=== PATIENT | female | born 1965 | race Caucasian/White ===

== ENCOUNTER 2016-05-07 10:13 | Inpatient (IN) ==
--- NOTE | 2016-05-07 10:55 | Emergency Department Note ---
Disposition Clinical Impression: Pneumonia, Pleural effusion, Sepsis, COPD (chronic obstructive pulmonary disease), Non-cardiac chest pain, Obesity Disposition: Admitted As Inpatient Referrals: NO,PCP [Non-Partnered Physician] - Forms: ED Satisfaction Letter General Adult HPI - General Chief complaint: ED Chest Pain Stated complaint: pain in chest with deep breath Time Seen by Provider: 05/07/16 10:38 Source: patient Limitations: no limitations - History of Present Illness HPI Narrative: 50-year-old female reports emergency department complaining of left chest pain. Pain is sharp and associated with breathing. She has had a cough. She has a history of chronic back pain which is unchanged. There is no history of fall or injury or rash. No abdominal pain vomiting or diarrhea. There is been no acute neck pain no coldness blueness numbness or weakness left upper extremity. The patient reports she feels like the pain is in her lungs. There is no history of direct shoulder pain. It is not painful to move the shoulder. The patient has no previous history of neck surgery. She is on chronic pain management and has had steroid injections for her back pain. There is no history of leg swelling or pain or coughing up blood. She has no history of previous PE or DVT. She denies any cardiac problems in the past. There is no history of confusion, trouble walking talking hearing seeing or speaking. No falls or injuries. She denies anticoagulant therapy at this time. She does describe some upper respiratory symptoms which are been present for about 2 weeks. Recent ED visit for same, discharged with outpatient management. Onset (ago): day(s) Pain Scale: 7 - Related Data Previous Rx's Medication Instructions Recorded OxyCODONE/APAP 5/325 [Percocet 1 each PO Q4HR PRN #10 tablet 04/10/15 5/325 MG] Cephalexin [Keflex] 500 mg PO QID #40 capsule 10/20/15 DiphenhydraMINE [Benadryl] 25 mg PO Q6HR #20 capsule 10/20/15 Hydrocodone/Acetaminophen [[place] 1 tab PO TID PRN #6 tab 10/20/15 5-325 Tablet] Albuterol Sulfate [Albuterol 1 puff IH Q4HR #1 hfa.aer.ad 05/05/16 Inhaler] Azithromycin 250 mg PO DAILY #6 tablet 05/05/16 Cyclobenzaprine [Flexeril] 10 mg PO BID PRN #10 tablet 05/05/16 PredniSONE 40 mg PO DAILY #10 tablet 05/05/16 Allergies Allergy/AdvReac Type Severity Reaction Status Date / Time adhesive Allergy Hives Verified 05/07/16 13:44 bacitracin Allergy Hives Verified 05/07/16 13:44 [From Neosporin ([id number])] grass pollen-perennial rye, Allergy Hives Verified 05/07/16 13:44 standar [grass poll-perennial rye,std] Neomycin Allergy Hives Verified 05/07/16 13:44 [From Neosporin ([id number])] polymyxin B Allergy Hives Verified 05/07/16 13:44 [From Neosporin ([id number])] gabapentin [From Neurontin] AdvReac Hallucinati Verified 05/07/16 13:44 ng simvastatin [From Zocor] AdvReac Muscle Pain Verified 05/07/16 13:44 All systems ED: reviewed and negative except as stated. Past Medical History - Past Medical History Medical history: Reports: arthritis, COPD, fibromyalgia, hypertension Psychiatric history: Reports: anxiety, depression FILE KEEPER history: Reports: no FILE KEEPER history - Social History Smoking Status: Current every day smoker Smokeless Tobacco Status: No Alcohol use: Reports: none Drug use: Reports: none Physical Exam - General Limitations: no limitations General appearance: alert, anxious - Head Head exam: atraumatic, normocephalic, normal inspection - Eye Eye exam: Present: normal appearance, PERRL, EOMI - ENT ENT exam: normal exam, normal oropharynx, mucous membranes moist - Neck Neck exam: Present: normal inspection, full ROM, trachea midline - Chest Chest inspection: Present: normal inspection, symmetric chest wall rise. Absent : tenderness, rash - Respiratory Respiratory exam: Present: normal lung sounds bilaterally. Absent: respiratory distress - Cardiovascular Cardiovascular exam: Present: regular rate, normal rhythm, normal heart sounds - Abdominal Exam Abdominal exam: Present: soft, Non-Tender. Absent: tenderness, distention, guarding, rebound, rigidity, pulsatile mass - Extremities Exam Extremities exam: Present: normal inspection, full ROM, normal capillary refill. Absent: tenderness, pedal edema, joint swelling, calf tenderness - Expanded Lower Extremity Exam Lower leg exam: Absent: Homans' sign Neurovascular/Tendon exam: Absent: motor deficit, sensory deficit, tendon deficit - Back Exam Back exam: Present: normal inspection, full ROM. Absent: tenderness, CVA tenderness (R), CVA tenderness (L), vertebral tenderness - Neurological Exam Neurological exam: Present: alert, oriented X3, CN II-XII intact. Absent: motor sensory deficit - Psychiatric Psychiatric exam: Present: normal affect, normal mood - Skin Skin exam: Present: warm, dry, intact, normal color. Absent: rash, cyanosis, diaphoresis, erythema, pallor, mottled Course Vital Signs Temperature 97.5 F L 05/07/16 10:14 Pulse Rate 102 05/07/16 10:14 Respiratory Rate 20 05/07/16 10:14 Blood Pressure 132/80 05/07/16 10:14 O2 Sat by Pulse Oximetry 99 05/07/16 10:14 Temperature 97.5 F L 05/07/16 10:14 Pulse Rate 92 05/07/16 13:33 Respiratory Rate 20 05/07/16 13:33 Blood Pressure 133/93 05/07/16 13:33 O2 Sat by Pulse Oximetry 96 05/07/16 13:33 Oxygen Delivery Oxygen Delivery Room Air Medical Decision Making - [facility] Narrative Medical decision making narrative: The patient presents for the second time to the ED, she has been taking azithromycin and has worsening symptomatology. The patient is tachycardic, tachypneic, and has no elevated white count with a source of infection, it appears she meets sepsis criteria. Based on her failed outpatient therapy and secondary presentation meeting sepsis criteria, IV fluids were ordered as well as Levaquin. An initial lactate is still pending. The patient was given 2 L of fluid here in the ED. The patient was given a DuoNeb and steroid medication in the ED. She was also given pain medications. The patient's EKG and cardiac enzymes are unrevealing. The patient does not feel well enough to go home. Based on our findings, bilateral pneumonitis, pleural effusion, sepsis criteria , second presentation, para failed outpatient therapy, I consulted the hospitalist on-call. - Lab Data Lab results reviewed: Yes I reviewed the patient's lab results. Result diagrams: 05/07/16 11:35 05/07/16 11:35 Lab Results 02/01/17 02/01/17 02/01/17 Range/Units 11:35 11:35 11:35 WBC 21.8 H (4.3-11.1) K/mcL RBC 4.56 (3.82-4.97) M/mcL Hgb 13.3 (11.5-15.4) g/dL Hct 40.4 (35.3-44.9) % MCV 88.6 (83.0-100.0) fL MCH 29.2 (28.0-33.3) pg MCHC 32.9 (31.6-35.5) g/dL RDW 15.3 H (11.5-14.5) % Plt Count 311 (140-400) K/mcL MPV 9.0 L (9.4-12.4) fL Immature Gran % 2.7 (0-4) % Seg Neutrophils % 81.6 % Lymphocytes % 7.4 % Monocytes % 7.7 % Eosinophils % 0.2 % Basophils % 0.4 % Neutrophils # 17.8 H (1.6-8.9) K/mcL Lymphocytes # 1.6 (0.6-4.6) K/mcL Monocytes # 1.7 H (0.0-1.3) K/mcL Eosinophils # 0.1 (0.0-0.6) K/mcL Basophils # 0.1 (0.0-0.2) K/mcL PT 13.7 H (9.4-12.1) Seconds INR 1.3 APTT 25.7 L (26.0-36.0) Seconds Sodium (136-145) mEq/L Potassium (3.5-4.5) mEq/L Chloride (98-109) mEq/L Carbon Dioxide (19-29) mEq/L BUN (7-20) mg/dL Creatinine (0.57-1.11) mg/dL Est GFR ( Amer) (> 60) Est GFR (Non-Af Amer) (> 60) BUN/Creatinine Ratio (6-26) Glucose (70-99) mg/dL Calculated Osmolality (280-300) Calcium (8.6-10.8) mg/dL Total Bilirubin (0.2-1.2) mg/dL Direct Bilirubin (0.0-0.5) mg/dL Indirect Bilirubin (0.0-1.2) mg/dL AST (5-34) Units/L ALT (0-55) Units/L Alkaline Phosphatase (38-126) Units/L Troponin I (0-0.03) ng/mL C-Reactive Protein (Less than 5) mg/L B-Natriuretic Peptide 20 (0-100) pg/mL Serum Total Protein (6.0-8.3) g/dL Albumin (3.5-5.0) g/dL Globulin (2.4-3.5) g/dL Albumin/Globulin Ratio (1.1-2.2) 05/07/16 05/07/16 Range/Units 11:35 11:35 WBC (4.3-11.1) K/mcL RBC (3.82-4.97) M/mcL Hgb (11.5-15.4) g/dL Hct (35.3-44.9) % MCV (83.0-100.0) fL MCH (28.0-33.3) pg MCHC (31.6-35.5) g/dL RDW (11.5-14.5) % Plt Count (140-400) K/mcL MPV (9.4-12.4) fL Immature Gran % (0-4) % Seg Neutrophils % % Lymphocytes % % Monocytes % % Eosinophils % % Basophils % % Neutrophils # (1.6-8.9) K/mcL Lymphocytes # (0.6-4.6) K/mcL Monocytes # (0.0-1.3) K/mcL Eosinophils # (0.0-0.6) K/mcL Basophils # (0.0-0.2) K/mcL PT (9.4-12.1) Seconds INR APTT (26.0-36.0) Seconds Sodium 132 L (136-145) mEq/L Potassium 4.4 (3.5-4.5) mEq/L Chloride 98 (98-109) mEq/L Carbon Dioxide 24 (19-29) mEq/L BUN 15 (7-20) mg/dL Creatinine 0.67 (0.57-1.11) mg/dL Est GFR ( Amer) > 60 (> 60) Est GFR (Non-Af Amer) > 60 (> 60) BUN/Creatinine Ratio 22 (6-26) Glucose 95 (70-99) mg/dL Calculated Osmolality 275 L (280-300) Calcium 9.5 (8.6-10.8) mg/dL Total Bilirubin 0.3 (0.2-1.2) mg/dL Direct Bilirubin 0.1 (0.0-0.5) mg/dL Indirect Bilirubin 0.2 (0.0-1.2) mg/dL AST 14 (5-34) Units/L ALT 19 (0-55) Units/L Alkaline Phosphatase 76 (38-126) Units/L Troponin I 0.00 (0-0.03) ng/mL C-Reactive Protein 115 H (Less than 5) mg/L B-Natriuretic Peptide (0-100) pg/mL Serum Total Protein 6.6 (6.0-8.3) g/dL Albumin 2.6 L (3.5-5.0) g/dL Globulin 4.0 H (2.4-3.5) g/dL Albumin/Globulin Ratio 0.7 L (1.1-2.2) - Radiology Data Radiology results reviewed: Yes I reviewed the patient's radiology results.
[2016-05-07 11:47] LABS: Basophils # 0.1 K/mcL (0.0-0.2); Basophils % 0.4 %; Eosinophils # 0.1 K/mcL (0.0-0.6); Eosinophils % 0.2 %; Hematocrit 40.4 % (35.3-44.9); Hemoglobin 13.3 g/dL (11.5-15.4); Immature Granulocytes % 2.7 % (0-4); Lymphocytes # 1.6 K/mcL (0.6-4.6); Lymphocytes % 7.4 %; Mean Corpuscular HGB Conc 32.9 g/dL (31.6-35.5); Mean Corpuscular Hemoglobin 29.2 pg (28.0-33.3); Mean Corpuscular Volume 88.6 fL (83.0-100.0); Monocytes # 1.7 K/mcL (0.0-1.3); Monocytes % 7.7 %; Neutrophils # 17.8 K/mcL (1.6-8.9); Platelet Count 311 K/mcL (140-400); Red Blood Count 4.56 M/mcL (3.82-4.97); Red Cell Distribution Width 15.3 % (11.5-14.5); Segmented Neutrophils % 81.6 %
[2016-05-07 11:53] LABS: INR 1.3; Prothrombin Time 13.7 Seconds (9.4-12.1)
[2016-05-07 11:56] LABS: Activated Partial Thrombo Time 25.7 Seconds (26.0-36.0)
[2016-05-07 12:02] LABS: Alanine Aminotransferase 19 Units/L (0-55); Albumin 2.6 g/dL (3.5-5.0); Albumin/Globulin Ratio 0.7 (1.1-2.2); Alkaline Phosphatase 76 Units/L (38-126); Aspartate Amino Transferase 14 Units/L (5-34); BUN/Creatinine Ratio 22 (6-26); Bilirubin,Direct 0.1 mg/dL (0.0-0.5); Bilirubin,Indirect 0.2 mg/dL (0.0-1.2); Bilirubin,Total 0.3 mg/dL (0.2-1.2); Blood Urea Nitrogen 15 mg/dL (7-20); Calcium 9.5 mg/dL (8.6-10.8); Carbon Dioxide 24 mEq/L (19-29); Chloride 98 mEq/L (98-109); Glucose 95 mg/dL (70-99); Osmolality,Calculated 275 (280-300); Potassium 4.4 mEq/L (3.5-4.5); Sodium 132 mEq/L (136-145); Total Protein 6.6 g/dL (6.0-8.3); eGFR For African Americans > 60 (> 60); eGFR For Non-African Americans > 60 (> 60)
[2016-05-07 12:15] LABS: C-Reactive Protein 115 mg/L (Less than 5)
[2016-05-07] MEDS ORDERED: *HR* HYDROmorphone (PF) 1 MG/ML SYRINGE IVP ONE (13:07)
[2016-05-07] MEDS ORDERED: 0.9 % Sodium Chloride 1,000 ML IVC ONE ×2 (13:07→13:30)
[2016-05-07] MEDS ORDERED: Levofloxacin 750 MG/150 ML 750 MG/150 ML BAG IVPB ONE (13:07)
[2016-05-07] MEDS ORDERED: methylPREDNISolone 125 MG/2 ML VIAL IVP ONE (13:10)
[2016-05-07] MEDS ORDERED: Ipratropium/Albuterol Neb 3 ML IH ONE (13:10)
[2016-05-07] MEDS ORDERED: *HR* HYDROcodone/Acet 5/325 mg TABLET PO PRN (14:47)
[2016-05-07] MEDS ORDERED: Acetaminophen 325 MG TABLET PO PRN (14:51)
[2016-05-07] MEDS ORDERED: Naloxone 0.4 MG/ML INJ IVP PRN (14:51)
[2016-05-07] MEDS ORDERED: Ondansetron 4 MG/2 ML VIAL IVP PRN (14:51)
[2016-05-07] MEDS ORDERED: Ipratropium/Albuterol Neb 3 ML IH PRN (15:08)
--- NOTE | 2016-05-07 15:13 | Internal Med History&Physical ---
Date of Encounter: 05/07/16 Time of Encounter: 14:50 Assessment and Plan (1) Acute exacerbation of chronic obstructive pulmonary disease (COPD) Current visit: Yes Status: Acute Acute exacerbation of COPD likely secondary to underlying PNA Continue IV steroids and bronchodilators Monitor O2 sat (goal O2 sat: 89-92%) Continue O2 supplementation as needed (2) Community acquired pneumonia Current visit: Yes Status: Acute -Failed outpatient therapy -Started IV Levaquin, will continue -f/u blood cultures -alter abx therapy as per blood cultures and clinical response (3) Cough Current visit: Yes Status: Acute -Guaifenesin PRN cough (4) Morbid obesity Current visit: Yes Status: Chronic Qualifiers: Obesity type: unspecified obesity type Qualified Code(s): E66.01 - Morbid ( severe) obesity due to excess calories (5) Hypertension Current visit: Yes Status: Chronic BP within acceptable range continue home medications Qualifiers: Hypertension type: essential hypertension Qualified Code(s): I10 - Essential (primary) hypertension (6) DVT prophylaxis Current visit: Yes Status: Acute Heparin SQ (7) Constipation Current visit: Yes Status: Chronic continue home medications Qualifiers: Constipation type: unspecified constipation type Qualified Code(s): K59.00 - Constipation, unspecified (8) Back pain Current visit: Yes Status: Chronic continue home pain medications Qualifiers: Back pain location: low back pain Chronicity: chronic Back pain laterality: unspecified Sciatica presence: unspecified whether sciatica present Qualified Code(s): M54.5 - Low back pain; G89.29 - Other chronic pain (9) Tobacco abuse Current visit: Yes Status: Chronic Smoking cessation counseling provided patient not ready to quit at this time, however states she is trying to cut down. Refused nicotine replacement therapy at this time (10) Non-cardiac chest pain Current visit: Yes Status: Acute Secondary to underlying pneumonia Will treat the PNA and COPD as listed above Tylenol PRN pain Guaifenesin prn cough Internal Medicine - H&P: HPI Chief complaint: shortness of breath/chest pain Admitted From: Home Plans for Post Hospital Care: Home History of present illness: Ms. Langford is a 50 year old female with PMH of COPD, HTN, HLD, IBS, fibromyalgia , chronic back pain (lumbar radiculopathy), chronic constipation, arthritis, and morbid obesity who presents to the ER for evaluation of worsening cough, shortness of breath, and chest pain. Patient states she was seen in the ER two days ago for the same complains and was discharged with oral antibiotics and steroids. She states she has been compliant with her medications but her symptoms worsened which prompted her visit to the ER. At this time she is resting comfortably in bed. states she feels much better with the nebulizer treatments. She reports of diffuse chest pain which occurs with cough and deep inspiration. She reports of being an every day smoker and states she had 11 cigarettes last night. At this time she denies any headache, dizziness, chest pain, abd pain, n/v, fever, or chills. Social Hx: 1ppd x 30+years Past Med Surg Social Fam HX - Past Medical History Medical history: arthritis, COPD, fibromyalgia, hypertension Psychiatric history: anxiety, depression - Social History Smoking Status: Current every day smoker Smokeless Tobacco Status: No Alcohol use: none Drug use: none Internal Medicine - H&P: Meds Albuterol Sulfate [Albuterol Inhaler] 1 puff IH Q4HR #1 hfa.aer.ad 05/05/16 [Rx] Cyclobenzaprine [Flexeril] 10 mg PO BID PRN #10 tablet 05/05/16 [Rx] Amitriptyline [Elavil] 50 mg PO HS 05/07/16 [History] Duloxetine [Cymbalta] 60 mg PO DAILY 05/07/16 [History] Fluticasone/Salmeterol [Advair 250-50 Diskus] 2 puff IH BID 05/07/16 [History] Hydrocodone/Acetaminophen [[place] 5-325 Tablet] 1 tab PO BID PRN 05/07/16 [ History] Lisinopril/Hydrochlorothiazide [Zestoretic 10-12.5 mg Tablet] 1 tab PO DAILY 04/22 [History] Loratadine [Allergy Relief] 10 mg PO DAILY 05/07/16 [History] Meloxicam [Meloxicam] 15 mg PO DAILY 05/07/16 [History] Omeprazole [PriLOSEC] 20 mg PO DAILY 05/07/16 [History] Polyethylene Glycol 3350 [MiraLAX] 17 gm PO DAILY 05/07/16 [History] Pravastatin Sodium [Pravachol] 40 mg PO DAILY 05/07/16 [History] Propranolol LA (24 HR) [Inderal LA] 60 mg PO DAILY 05/07/16 [History] Allergies adhesive Allergy (Verified 05/07/16 13:44) Hives bacitracin [From Neosporin ([id number])] Allergy (Verified 05/07/16 13:44) Hives grass pollen-perennial rye, standar [grass poll-perennial rye,std] Allergy ( Verified 05/07/16 13:44) Hives Neomycin [From Neosporin ([id number]-kle-lsmpm)] Allergy (Verified 05/07/16 13:44) Hives polymyxin B [From Neosporin (nbs-lmf-forzy)] Allergy (Verified 05/07/16 13:44) Hives gabapentin [From Neurontin] Adverse Reaction (Verified 05/07/16 13:44) Hallucinating simvastatin [From Zocor] Adverse Reaction (Verified 05/07/16 13:44) Muscle Pain All Systems PM: A 10-system review of systems was performed and is negative for pertinent findings except as documented above in the HPI. - Constitutional Constitutional: as per HPI - Constitutional Vitals: Temp Pulse Resp BP Pulse Ox 97.5 F L 92 16 154/102 96 05/07/16 10:14 05/07/16 13:33 05/07/16 14:27 05/07/16 14:27 05/07/16 13:33 General appearance: Present: cooperative, A&O X 3, morbidly obese, pleasant, no acute distress, answers questions appropriately - Head Head exam: Present: atraumatic, normocephalic - Eye Eye exam: Present: normal appearance, conjuntiva pink, sclera anicteric - Respiratory Respiratory exam: Absent: respiratory distress, wheezes (coarse breath sounds on right upper lobe, equal air entry bilaterally) - Cardiovascular Cardiovascular exam: Present: RRR, +S1, +S2 - GI/Abdominal GI/Abdominal exam: Present: distended (obese), normal bowel sounds, soft. Absent: tenderness - Extremities Exam Extremities exam: Present: pedal edema, warm, radial pulses palpable and symetrical. Absent: calf tenderness, tenderness - Neurological Exam Neurological exam: Present: alert, oriented X3, no focal deficits - Psychiatric Psychiatric exam: Present: normal affect, normal mood Internal Med - H&P Results - Labs CBC & Chem 7: 05/07/16 11:35 05/07/16 11:35
[2016-05-07] MEDS ORDERED: Ipratropium/Albuterol Neb 3 ML IH SCH (16:00)
[2016-05-07] MEDS: *HR* Heparin 5,000 UNIT/ML VIAL SQ SCH ×2 (16:24→22:03)
[2016-05-07] MEDS: MethylPREDNISolone 40 MG/ML VIAL IVP SCH (16:24)
[2016-05-07] MEDS: *HR* HYDROcodone/Acet 5/325 mg TABLET PO PRN (16:32)
[2016-05-07] MEDS: Ipratropium/Albuterol Neb 3 ML IH SCH ×2 (16:41→21:29)
[2016-05-07] MEDS: GuaiFENesin Liq 200 MG/10 ML UDC PO PRN (17:46)
[2016-05-07 17:57] LABS: Bilirubin,Urine Negative (Negative); Blood,Urine Trace (Negative); Clarity,Urine Clear (Clear); Color,Urine Yellow (Yellow); Glucose,Urine (UA) Normal (Normal); Ketones,Urine Negative (Negative); Leukocyte Esterase,Urine Negative (Negative); Nitrite,Urine Negative (Negative); PH,Urine 7.5 pH Units (5.0-8.0); Protein,Urine Negative (Neg-Trace); Specific Gravity,Urine 1.007 (1.010-1.025); Urobilinogen,Urine Normal (Normal)
[2016-05-07 17:59] LABS: Bacteria,Urine None Seen per hpf (None-Few); Hyaline Casts,Urine None Seen per lpf (None-Few); RBC,Urine 0-3 per hpf (0-3); Squamous Epithelial Cell,Urine Many per lpf (None-Few); WBC,Urine 0-3 per hpf (0-3)
[2016-05-07] MEDS ORDERED: Budesonide/Formoterol 80/4.5 MDI IH SCH (21:00)
[2016-05-07] MEDS: Acetaminophen 325 MG TABLET PO PRN (22:02)
[2016-05-07] MEDS: Nicotine 14 MG PATCH.TD24 TD SCH (22:03)
[2016-05-08] MEDS: Ipratropium/Albuterol Neb 3 ML IH SCH ×5 (05:06→22:03)
[2016-05-08] MEDS: GuaiFENesin Liq 200 MG/10 ML UDC PO PRN (05:20)
[2016-05-08] MEDS: MethylPREDNISolone 40 MG/ML VIAL IVP SCH ×2 (05:20→17:51)
[2016-05-08] MEDS: *HR* HYDROcodone/Acet 5/325 mg TABLET PO PRN ×2 (05:20→14:57)
[2016-05-08 06:30] LABS: Basophils # 0.1 K/mcL (0.0-0.2); Basophils % 0.3 %; Hematocrit 36.6 % (35.3-44.9); Hemoglobin 11.9 g/dL (11.5-15.4); Immature Granulocytes % 3.7 % (0-4); Lymphocytes # 1.5 K/mcL (0.6-4.6); Lymphocytes % 8.3 %; Mean Corpuscular HGB Conc 32.5 g/dL (31.6-35.5); Mean Corpuscular Hemoglobin 28.7 pg (28.0-33.3); Mean Corpuscular Volume 88.2 fL (83.0-100.0); Mean Platelet Volume 9.2 fL (9.4-12.4); Monocytes # 0.5 K/mcL (0.0-1.3); Monocytes % 2.6 %; Neutrophils # 15.1 K/mcL (1.6-8.9); Platelet Count 313 K/mcL (140-400); Red Blood Count 4.15 M/mcL (3.82-4.97); Segmented Neutrophils % 85.1 %
[2016-05-08 06:42] LABS: BUN/Creatinine Ratio 20 (6-26); Blood Urea Nitrogen 12 mg/dL (7-20); Calcium 9.5 mg/dL (8.6-10.8); Carbon Dioxide 21 mEq/L (19-29); Chloride 103 mEq/L (98-109); Glucose 146 mg/dL (70-99); Magnesium 1.8 mg/dL (1.6-2.6); Osmolality,Calculated 284 (280-300); Phosphorous 3.8 mg/dL (2.3-4.7); Potassium 4.1 mEq/L (3.5-4.5); Sodium 136 mEq/L (136-145); eGFR For African Americans > 60 (> 60); eGFR For Non-African Americans > 60 (> 60)
[2016-05-08] MEDS: *HR* Heparin 5,000 UNIT/ML VIAL SQ SCH ×3 (08:56→22:53)
[2016-05-08] MEDS: Propranolol LA (24 HR) 60 MG CAP.SA.24H PO SCH (08:57)
[2016-05-08] MEDS: Loratadine 10 MG TABLET PO SCH (08:57)
[2016-05-08] MEDS: Nicotine 14 MG PATCH.TD24 TD SCH (08:57)
[2016-05-08] MEDS: (Pravastatin Sodium [Pravachol] 40 MG) PO SCH (08:58)
[2016-05-08] MEDS: Levofloxacin 500 MG/100 ML 500 MG/100 ML BAG IVPB SCH (08:58)
--- NOTE | 2016-05-08 11:22 | Electrocardiograph Report ---
[facility] Test Date: 2016-05-07 Pat Name: Wendy Langford Department: 104 Room: [facility] Gender: F Sonar Technician: : 1965 Requested By: Lito Ruiz Order Number: [id number] Reading MD: Nasim Burton MD Measurements Intervals [place] Rate: 96 P: 71 CO: 128 QRS: 78 QRSD: 101 T: 78 QT: 310 QTc: 364 Interpretive Statements SINUS RHYTHM POSSIBLE RIGHT VENTRICULAR CONDUCTION DELAY Electronically Signed On 05-08-2016 11:20:56 EST by Nasim Burton MD
--- NOTE | 2016-05-08 11:35 | Internal Med Progress Note ---
Date of Encounter: 05/08/16 Time of Encounter: 10:30 - Assessment and plan (1) Acute exacerbation of chronic obstructive pulmonary disease (COPD) Current Visit: Yes Status: Acute Assessment and plan: Improving. Continue current management with IV steroids, nebulizer treatments. Patient is currently not requiring oxygen supplementation. (2) Community acquired pneumonia Current Visit: Yes Status: Acute Assessment and plan: Nonspecific organism. Improving leukocytosis. Continue levofloxacin. Patient at moderate risk for complications. (3) Cough Current Visit: Yes Status: Acute (4) Non-cardiac chest pain Current Visit: Yes Status: Acute Assessment and plan: Likely related to chest wall pain from pneumonia and cough. (5) Back pain Current Visit: Yes Status: Chronic Assessment and plan: On Flexeril and [place]. Qualifiers: Back pain location: low back pain Chronicity: chronic Back pain laterality: unspecified Sciatica presence: unspecified whether sciatica present Qualified Code(s): M54.5 - Low back pain; G89.29 - Other chronic pain (6) Hypertension Current Visit: Yes Status: Chronic Assessment and plan: Blood pressure is elevated. On lisinopril hydrochlorothiazide and Inderal. We will continue to monitor. If persistently elevated, will add amlodipine. Qualifiers: Hypertension type: essential hypertension Qualified Code(s): I10 - Essential (primary) hypertension (7) Morbid obesity Current Visit: Yes Status: Chronic Qualifiers: Obesity type: unspecified obesity type Qualified Code(s): E66.01 - Morbid ( severe) obesity due to excess calories (8) Tobacco abuse Current Visit: Yes Status: Chronic (9) DVT prophylaxis Current Visit: Yes Status: Acute - Subjective Interval history: Patient is feeling better today. Continues to have some intermittent chest pain on the left lateral side and also in her back. Especially with cough. Shortness of breath is improving. She denies any wheezing at this time. - Constitutional Vitals: Temp Pulse Resp BP Pulse Ox 98.1 F 97 16 144/89 95 05/08/16 10:01 05/08/16 10:01 05/08/16 10:01 05/08/16 10:01 05/08/16 10:01 General appearance: Present: cooperative, mild distress, A&O X 3, morbidly obese , pleasant, no acute distress, answers questions appropriately - Neck Neck exam general surgery: Present: supple, trachea midline. Absent: lymphadenopathy - Respiratory Respiratory exam: Present: CTAB, prolonged expiratory phase. Absent: accessory muscle use, rales, rhonchi, wheezes Additional comments: Posterior chest wall tenderness just medial to the left scapula - Cardiovascular Cardiovascular exam: Present: RRR, +S1, +S2. Absent: diastolic murmur, gallop, rubs, systolic murmur - GI/Abdominal GI/Abdominal exam: Present: normal bowel sounds, soft, no peritoneal signs. Absent: distended, tenderness - Extremities Exam Extremities exam: Present: warm, radial pulses palpable and symetrical. Absent : calf tenderness, cyanotic, pedal edema Internal Medicine: Result - Labs CBC & Chem 7: 05/08/16 05:40 05/08/16 05:40 Labs: Short CBC 05/08/16 Range/Units 05:40 WBC 17.7 H (4.3-11.1) K/mcL Hgb 11.9 (11.5-15.4) g/dL Hct 36.6 (35.3-44.9) % Plt Count 313 (140-400) K/mcL Neutrophils # 15.1 H (1.6-8.9) K/mcL BMP 05/08/16 05:40 Sodium 136 Potassium 4.1 Chloride 103 Carbon Dioxide 21 BUN 12 Creatinine 0.61 Glucose 146 H Calcium 9.5 Urine 05/07/16 Range/Units 17:40 Urine Color Yellow (Yellow) Urine Clarity Clear (Clear) Urine pH 7.5 (5.0-8.0) pH Units Ur Specific [place] 1.007 L (1.010-1.025) Urine Protein Negative (Neg-Trace) mg/dL Urine Glucose (UA) Normal (Normal) mg/dL - ABG Interpretation ABG results: PT/INR, D-dimer PT 13.7 Seconds (9.4-12.1) H 05/07/16 11:35 Consult Discharge Plan - Plan Referrals: Eulalia Hanson, INFORMATION ANALYST [Primary Care Provider] - - Attending Attestation This document has been at least partially created by [employer] recognition technology by Dr. Redd. Errors in grammar, wording or other phrases may exist. If errors are found after the documentation is signed, they will be addressed individually in the addendum section of this document when appropriate.
[2016-05-08 14:51] LABS: Acinetobacter baumannii by PCR Not Detected (Not Detect); Candida albicans by PCR Not Detected (Not Detect); Candida glabrata by PCR Not Detected (Not Detect); Candida krusei by PCR Not Detected (Not Detect); Candida parapsilosis by PCR Not Detected (Not Detect); Candida tropicalis by PCR Not Detected (Not Detect); Enterococcus by PCR Not Detected (Not Detect); Escherichia coli by PCR Not Detected (Not Detect); Klebsiella oxytoca by PCR Not Detected (Not Detect); Klebsiella pneumoniae by PCR Not Detected (Not Detect); Pseudomonas aeruginosa by PCR Not Detected (Not Detect); Serratia marcescens by PCR Not Detected (Not Detect); Staphylococcus aureus by PCR ***DETECTED*** (Not Detect); Streptococcus agalactiae(B)PCR Not Detected (Not Detect); Streptococcus by PCR Not Detected (Not Detect); Streptococcus pneumoniae PCR Not Detected (Not Detect); Streptococcus pyogenes (A) PCR Not Detected (Not Detect); mecA Methicillin-Resist Gene Not Detected (Not Detect)
[2016-05-08] MEDS: Vancomycin 1,500 MG in D5% in Water 250 ML IVPB SCH (16:13)
[2016-05-08] MEDS ORDERED: Perflutren Lipid Microsphere 1.3 ML in 0.9 % Sodium Chloride 8.7 ML IVP ONE (21:15)
[2016-05-08] MEDS: Budesonide/Formoterol 80/4.5 MDI IH SCH (22:03)
[2016-05-09] MEDS: Ipratropium/Albuterol Neb 3 ML IH SCH ×4 (03:53→22:27)
[2016-05-09] MEDS: Vancomycin 1,500 MG in D5% in Water 250 ML IVPB SCH ×2 (04:34→15:28)
[2016-05-09] MEDS: GuaiFENesin Liq 200 MG/10 ML UDC PO PRN (04:38)
[2016-05-09] MEDS: MethylPREDNISolone 40 MG/ML VIAL IVP SCH (06:02)
[2016-05-09] MEDS: *HR* Heparin 5,000 UNIT/ML VIAL SQ SCH ×3 (06:02→22:01)
[2016-05-09 06:16] LABS: Basophils # 0.1 K/mcL (0.0-0.2); Basophils % 0.4 %; Hemoglobin 12.6 g/dL (11.5-15.4); Immature Granulocytes % 4.1 % (0-4); Lymphocytes % 11.4 %; Mean Corpuscular HGB Conc 33.2 g/dL (31.6-35.5); Mean Corpuscular Hemoglobin 29.1 pg (28.0-33.3); Mean Corpuscular Volume 87.8 fL (83.0-100.0); Mean Platelet Volume 9.4 fL (9.4-12.4); Monocytes # 0.8 K/mcL (0.0-1.3); Monocytes % 4.4 %; Neutrophils # 13.7 K/mcL (1.6-8.9); Platelet Count 333 K/mcL (140-400); Red Blood Count 4.33 M/mcL (3.82-4.97); Red Cell Distribution Width 14.9 % (11.5-14.5); Segmented Neutrophils % 79.7 %
[2016-05-09 06:34] LABS: BUN/Creatinine Ratio 23 (6-26); Blood Urea Nitrogen 15 mg/dL (7-20); Calcium 9.4 mg/dL (8.6-10.8); Carbon Dioxide 23 mEq/L (19-29); Chloride 100 mEq/L (98-109); Glucose 143 mg/dL (70-99); Osmolality,Calculated 281 (280-300); Potassium 4.1 mEq/L (3.5-4.5); Sodium 134 mEq/L (136-145); eGFR For African Americans > 60 (> 60); eGFR For Non-African Americans > 60 (> 60)
[2016-05-09] MEDS: Loratadine 10 MG TABLET PO SCH (08:58)
[2016-05-09] MEDS: Propranolol LA (24 HR) 60 MG CAP.SA.24H PO SCH (08:58)
[2016-05-09] MEDS: Levofloxacin 500 MG/100 ML 500 MG/100 ML BAG IVPB SCH (08:59)
[2016-05-09] MEDS: Nicotine 14 MG PATCH.TD24 TD SCH (08:59)
[2016-05-09] MEDS: (Pravastatin Sodium [Pravachol] 40 MG) PO SCH (09:02)
[2016-05-09] MEDS: *HR* HYDROcodone/Acet 5/325 mg TABLET PO PRN ×2 (09:09→22:01)
--- NOTE | 2016-05-09 10:22 | ECHO - Doppler Report ---
Echo with Imaging Enhancement Agent Name: Wendy Langford Date of Study: 05/08/2016 Date: 1965 Ht: 61.0 in Medical Record#: [id number] Age: 50 Wt: 233.0 lb Gender: Female BSA: 2.02 Order #: [id number] Location: [facility] Room #: [facility] Reading Physician: Enoc Robb DO, ROQUE, YU BRAN Brand Marketing Specialist: OANH VelázquezT Ordering Physician: Danielle Redd MD Primary Physician: Eulalia Hanson CNP Indications: Staph aureus bacteremia Impressions: LVEF 60-65%. Normal LV chamber size, wall thickness and function. Mild left ventricular diastolic dysfunction. Normal right ventricular structure and function. No evidence of pulmonary hypertension. RVSP was not well obtained due to lack of adequate TR jet. No obvious significant valvular dysfunction. No obvious evidence of endocarditis on this study. Repeat TTE or consider SHASHA as clinically indicated. Left Ventricular Wall Motion: Rest Echo Findings All wall segments showed normal motion. Findings: Study Quality * Technically sub-optimal due to poor echocardiographic windows. ECG Findings * Normal sinus rhythm. Left Ventricle * LVEF 60-65%. * Normal LV chamber size, wall thickness and function. * Mild left ventricular diastolic dysfunction. Right Ventricle * Normal right ventricular structure and function. Left Atrium * Mildly dilated left atrium. Right Atrium * Normal right atrial size. Interatrial Septum * Interatrial septum not well evaluated. Aortic Valve * Aortic valve not well visualized. * No aortic regurgitation. * No aortic stenosis. Mitral Valve * Normal mitral valve structure and function. * No mitral regurgitation. * No mitral stenosis. Tricuspid Valve * Normal tricuspid valve structure and function. * Trace tricuspid regurgitation. * No evidence of pulmonary hypertension. Pulmonic Valve * Pulmonic valve is not well visualized. Aorta * Normally sized aortic root. Pericardium * The pericardium appears normal. IVC * The IVC is not well evaluated. Pulmonary Artery * Normal visualized portions of the main pulmonary artery. History Hypertension Contrast: [place] 1.3 ml in 8.7 ml of saline 3 ml. Measurements: BP: 147/ 83 2D Normal Values RVIDd: 2.20 cm <2.7 cm IVSd: .90 cm 0.6 - 1.0 cm LVIDd: 4.60 cm 3.7 - 5.6 cm LVPWd: .90 cm 0.6 - 1.1 cm LVIDs: 2.80 cm 1.5 - 3.6 cm AO: 2.40 cm < 4.0 cm LA: 3.00 cm 2.0 - 4.0cm %FS: 39.10 cm >25 % LA volume: 39 Mitral Valve Peak E:1.13 m/sec Peak A:1.01 m/sec E/A Ratio:1.1 Peak E' Lat Scar:9.85 cm/s Peak E' Med Scar:8.29 cm/s E/E' Lat Ratio:11.5 E/E' Med Ratio:13.6 Tricuspid Valve TV Regurg Peak Grad: 7.00mmHg TV Regurg Peak Scar: 1.34m/sec Updated by Enoc Robb DO, FACKi, YINA, YU on 05/09/2016 10:17:50 AM electronically signed on 05/09/2016 10:18:51 AM with status of Final Wall Motion [place]: 1=Normal, 2=Hypokinesis, 3=Akinesis, 4=Dyskinesis, 5=Aneurysmal, 6=Hyperkinetic, X=Not Visualized (Blank)=Missing
[2016-05-09] MEDS: Budesonide/Formoterol 80/4.5 MDI IH SCH ×2 (10:31→22:27)
--- NOTE | 2016-05-09 10:46 | Internal Med Progress Note ---
Date of Encounter: 05/09/16 Time of Encounter: 10:15 - Assessment and plan (1) Acute exacerbation of chronic obstructive pulmonary disease (COPD) Current Visit: Yes Status: Acute Assessment and plan: Clinically getting better. Will wean down and taper steroids. Continue duo nebs. (2) Community acquired pneumonia Current Visit: Yes Status: Acute Assessment and plan: Blood cultures are growing staph aureus. Most likely this is the cause of her pneumonia. Continue vancomycin for now until final culture results are available. 2-D echo done and does not show any vegetations. (3) Cough Current Visit: Yes Status: Acute (4) Non-cardiac chest pain Current Visit: Yes Status: Acute Assessment and plan: Related to cough. Improving (5) Back pain Current Visit: Yes Status: Chronic Qualifiers: Back pain location: low back pain Chronicity: chronic Back pain laterality: unspecified Sciatica presence: unspecified whether sciatica present Qualified Code(s): M54.5 - Low back pain; G89.29 - Other chronic pain (6) Hypertension Current Visit: Yes Status: Chronic Assessment and plan: Blood pressure remains slightly elevated. Will start carvedilol to control it better. Qualifiers: Hypertension type: essential hypertension Qualified Code(s): I10 - Essential (primary) hypertension (7) Morbid obesity Current Visit: Yes Status: Chronic Qualifiers: Obesity type: unspecified obesity type Qualified Code(s): E66.01 - Morbid ( severe) obesity due to excess calories (8) Tobacco abuse Current Visit: Yes Status: Chronic (9) DVT prophylaxis Current Visit: Yes Status: Acute (10) Staphylococcus aureus bacteremia Current Visit: Yes Status: Suspected Assessment and plan: Patient growing staph aureus and blood cultures. Will repeat blood cultures. Moderate risk for complications. Continue vancomycin for now. - Subjective Interval history: Continues to feel better. Chest pain improving and now present only when she is coughing. No fever chills or night sweats. No nausea or vomiting. - Constitutional Vitals: Temp Pulse Resp BP Pulse Ox 98.2 F 83 16 148/88 98 05/09/16 06:29 05/09/16 06:29 05/09/16 10:31 05/09/16 06:29 05/09/16 10:31 General appearance: Present: cooperative, mild distress, A&O X 3, morbidly obese , pleasant, no acute distress, answers questions appropriately - Neck Neck exam general surgery: Present: supple, trachea midline. Absent: lymphadenopathy - Respiratory Respiratory exam: Present: prolonged expiratory phase, wheezes. Absent: accessory muscle use, rales, rhonchi - Cardiovascular Cardiovascular exam: Present: RRR, +S1, +S2. Absent: diastolic murmur, gallop, rubs, systolic murmur - GI/Abdominal GI/Abdominal exam: Present: normal bowel sounds, soft, no peritoneal signs. Absent: distended, tenderness - Extremities Exam Extremities exam: Present: warm, radial pulses palpable and symetrical. Absent : calf tenderness, cyanotic, pedal edema - Skin Skin exam: Present: dry, intact Additional comments: Multiple healing skin wounds without any signs of infection present on her upper extremities and on her face. Internal Medicine: Result - Labs CBC & Chem 7: 05/09/16 05:25 05/09/16 05:25 Labs: Short CBC 05/09/16 Range/Units 05:25 WBC 17.2 H (4.3-11.1) K/mcL Hgb 12.6 (11.5-15.4) g/dL Hct 38.0 (35.3-44.9) % Plt Count 333 (140-400) K/mcL Neutrophils # 13.7 H (1.6-8.9) K/mcL BMP 05/09/16 05:25 Sodium 134 L Potassium 4.1 Chloride 100 Carbon Dioxide 23 BUN 15 Creatinine 0.64 Glucose 143 H Calcium 9.4 - ABG Interpretation ABG results: PT/INR, D-dimer PT 13.7 Seconds (9.4-12.1) H 05/07/16 11:35 Consult Discharge Plan - Plan Referrals: Eulalia Hanson, ASSEMBLER CRIMPER [Primary Care Provider] - - Attending Attestation This document has been at least partially created by [employer] recognition technology by Dr. Redd. Errors in grammar, wording or other phrases may exist. If errors are found after the documentation is signed, they will be addressed individually in the addendum section of this document when appropriate.
[2016-05-09] MEDS: amLODIPine 5 MG TABLET PO SCH (12:40)
[2016-05-09] MEDS: Acetaminophen 325 MG TABLET PO PRN (19:19)
[2016-05-10 03:27] LABS: Basophils % 0.1 %; Eosinophils % 0.1 %; Hematocrit 39.5 % (35.3-44.9); Hemoglobin 13.1 g/dL (11.5-15.4); Immature Granulocytes % 7.2 % (0-4); Lymphocytes # 3.1 K/mcL (0.6-4.6); Lymphocytes % 19.9 %; Mean Corpuscular HGB Conc 33.2 g/dL (31.6-35.5); Mean Corpuscular Hemoglobin 28.9 pg (28.0-33.3); Mean Corpuscular Volume 87.2 fL (83.0-100.0); Monocytes % 8.1 %; Platelet Count 335 K/mcL (140-400); Red Blood Count 4.53 M/mcL (3.82-4.97); Red Cell Distribution Width 14.8 % (11.5-14.5); Segmented Neutrophils % 64.6 %
[2016-05-10 03:39] LABS: Monocytes # 1.3 K/mcL (0.0-1.3)
[2016-05-10 03:43] LABS: BUN/Creatinine Ratio 29 (6-26); Blood Urea Nitrogen 20 mg/dL (7-20); Calcium 9.5 mg/dL (8.6-10.8); Carbon Dioxide 22 mEq/L (19-29); Chloride 100 mEq/L (98-109); Glucose 109 mg/dL (70-99); Osmolality,Calculated 281 (280-300); Sodium 134 mEq/L (136-145); eGFR For African Americans > 60 (> 60); eGFR For Non-African Americans > 60 (> 60)
[2016-05-10 04:27] LABS: Platelet Estimate Normal (Normal)
[2016-05-10] MEDS: Ipratropium/Albuterol Neb 3 ML IH SCH ×4 (04:42→22:40)
[2016-05-10] MEDS: Vancomycin 1,500 MG in D5% in Water 250 ML IVPB SCH (05:02)
[2016-05-10] MEDS: *HR* Heparin 5,000 UNIT/ML VIAL SQ SCH ×2 (06:48→14:43)
[2016-05-10] MEDS: Propranolol LA (24 HR) 60 MG CAP.SA.24H PO SCH (08:25)
[2016-05-10] MEDS: amLODIPine 5 MG TABLET PO SCH (08:25)
[2016-05-10] MEDS: predniSONE 20 MG TABLET PO SCH (08:26)
[2016-05-10] MEDS: Acetaminophen 325 MG TABLET PO PRN ×2 (08:26→16:37)
[2016-05-10] MEDS: Nicotine 14 MG PATCH.TD24 TD SCH (08:26)
[2016-05-10] MEDS: Levofloxacin 500 MG/100 ML 500 MG/100 ML BAG IVPB SCH (08:27)
[2016-05-10] MEDS: (Pravastatin Sodium [Pravachol] 40 MG) PO SCH (08:31)
[2016-05-10] MEDS: Loratadine 10 MG TABLET PO SCH (08:35)
[2016-05-10] MEDS: Budesonide/Formoterol 80/4.5 MDI IH SCH ×2 (09:04→22:40)
[2016-05-10] MEDS ORDERED: Aminoglycoside Consult 1 EACH MC ONE (09:34)
[2016-05-10] MEDS: ceFAZolin 2,000 MG in D5% in Water 100 ML IVPB SCH ×2 (10:26→16:38)
[2016-05-10] MEDS: *HR* HYDROcodone/Acet 5/325 mg TABLET PO PRN ×2 (10:26→21:06)
--- NOTE | 2016-05-10 11:13 | Internal Med Progress Note ---
Date of Encounter: 05/10/16 Time of Encounter: 11:11 - Assessment and plan (1) Staphylococcus aureus bacteremia Current Visit: Yes Status: Acute Assessment and plan: Staph aureus bacteremia. Echocardiogram shows no vegetations. Patient will need at least 14 day treatment course with IV antibiotics. Moderate risk for complications. (2) Community acquired pneumonia Current Visit: Yes Status: Acute Assessment and plan: Most likely from methicillin sensitive staph aureus. Continue antibiotics. Patient will need intravenous antibiotics to complete treatment course due to bacteremia. (3) Acute exacerbation of chronic obstructive pulmonary disease (COPD) Current Visit: Yes Status: Acute Assessment and plan: Continue nebs. Continue steroid taper. (4) Cough Current Visit: Yes Status: Acute (5) Non-cardiac chest pain Current Visit: Yes Status: Acute Assessment and plan: Patient having pleuritic pain in her left back deep breaths. Supportive care. Pain control. (6) Back pain Current Visit: Yes Status: Chronic Qualifiers: Back pain location: low back pain Chronicity: chronic Back pain laterality: unspecified Sciatica presence: unspecified whether sciatica present Qualified Code(s): M54.5 - Low back pain; G89.29 - Other chronic pain (7) Hypertension Current Visit: Yes Status: Chronic Assessment and plan: Started on amlodipine yesterday. We will continue to monitor blood pressure for now. Qualifiers: Hypertension type: essential hypertension Qualified Code(s): I10 - Essential (primary) hypertension (8) Morbid obesity Current Visit: Yes Status: Chronic Qualifiers: Obesity type: unspecified obesity type Qualified Code(s): E66.01 - Morbid ( severe) obesity due to excess calories (9) Tobacco abuse Current Visit: Yes Status: Chronic (10) DVT prophylaxis Current Visit: Yes Status: Acute - Subjective Interval history: Patient continues to improve. Denies any new complaints at this time. Tolerating diet well. His serial nebulizer treatments currently. No chest pain. No shortness of breath. She does have some back pain especially with deep breaths in her left scapular region. - Constitutional Vitals: Temp Pulse Resp BP Pulse Ox 98.6 F 87 18 156/98 95 05/10/16 06:41 05/10/16 06:41 05/10/16 09:06 05/10/16 06:41 05/10/16 09:06 General appearance: Present: cooperative, mild distress, A&O X 3, morbidly obese , pleasant, no acute distress, answers questions appropriately - Respiratory Respiratory exam: Present: CTAB. Absent: accessory muscle use, rales, rhonchi, wheezes - GI/Abdominal GI/Abdominal exam: Present: normal bowel sounds, soft, no peritoneal signs. Absent: distended, tenderness - Extremities Exam Extremities exam: Present: warm, radial pulses palpable and symetrical. Absent : calf tenderness, cyanotic, pedal edema - Neurological Exam Neurological exam: Present: CN II-XII intact, oriented X3, no focal deficits. Absent: facial droop, speech deficit Internal Medicine: Result - Labs CBC & Chem 7: 05/10/16 03:10 05/10/16 03:10 Labs: Short CBC 05/10/16 Range/Units 03:10 WBC 15.4 H (4.3-11.1) K/mcL Hgb 13.1 (11.5-15.4) g/dL Hct 39.5 (35.3-44.9) % Plt Count 335 (140-400) K/mcL Neutrophils # 10.0 H (1.6-8.9) K/mcL BMP 05/10/16 03:10 Sodium 134 L Potassium 4.0 Chloride 100 Carbon Dioxide 22 BUN 20 Creatinine 0.69 Glucose 109 H Calcium 9.5 - ABG Interpretation ABG results: PT/INR, D-dimer PT 13.7 Seconds (9.4-12.1) H 05/07/16 11:35 Consult Discharge Plan - Plan Referrals: Eulalia Hanson, CLOUD ADMINISTRATOR [Primary Care Provider] - Prescriptions: Cefazolin Sodium in 0.9 % NaCl [Cefazolin-0.9% NaCl 2 G/10 ml] 2 gm IV Q8H #30 syringe - Attending Attestation This document has been at least partially created by [employer] recognition technology by Dr. Redd. Errors in grammar, wording or other phrases may exist. If errors are found after the documentation is signed, they will be addressed individually in the addendum section of this document when appropriate.
[2016-05-11] MEDS: *HR* Heparin 5,000 UNIT/ML VIAL SQ SCH ×4 (00:31→20:52)
[2016-05-11] MEDS: ceFAZolin 2,000 MG in D5% in Water 100 ML IVPB SCH ×4 (00:32→23:53)
[2016-05-11] MEDS: Ipratropium/Albuterol Neb 3 ML IH SCH ×4 (03:53→22:28)
[2016-05-11] MEDS: *HR* HYDROcodone/Acet 5/325 mg TABLET PO PRN (09:06)
[2016-05-11] MEDS: Nicotine 14 MG PATCH.TD24 TD SCH (09:06)
[2016-05-11] MEDS: Propranolol LA (24 HR) 60 MG CAP.SA.24H PO SCH (09:07)
[2016-05-11] MEDS: amLODIPine 5 MG TABLET PO SCH (09:07)
[2016-05-11] MEDS: Loratadine 10 MG TABLET PO SCH (09:07)
[2016-05-11] MEDS: predniSONE 20 MG TABLET PO SCH (09:07)
[2016-05-11] MEDS: (Pravastatin Sodium [Pravachol] 40 MG) PO SCH (09:08)
[2016-05-11] MEDS ORDERED: *HR* HYDROcodone/Acet 5/325 mg TABLET PO PRN (10:30)
--- NOTE | 2016-05-11 10:31 | Internal Med Progress Note ---
Date of Encounter: 05/11/16 Time of Encounter: 10:29 - Assessment and plan (1) Staphylococcus aureus bacteremia Current Visit: Yes Status: Acute Assessment and plan: Repeat blood cultures have been negative so far. Continue cefazolin. chip loft worker working on getting patient set up for outpatient IV antibiotics. (2) Community acquired pneumonia Current Visit: Yes Status: Acute Assessment and plan: Likely from staph aureus. On cefazolin (3) Acute exacerbation of chronic obstructive pulmonary disease (COPD) Current Visit: Yes Status: Acute Assessment and plan: Improving. Continue nebs. Taper steroids. (4) Cough Current Visit: Yes Status: Acute (5) Non-cardiac chest pain Current Visit: Yes Status: Acute (6) Back pain Current Visit: Yes Status: Chronic Assessment and plan: From cough. On [employer]. Qualifiers: Back pain location: low back pain Chronicity: chronic Back pain laterality: unspecified Sciatica presence: unspecified whether sciatica present Qualified Code(s): M54.5 - Low back pain; G89.29 - Other chronic pain (7) Hypertension Current Visit: Yes Status: Chronic Assessment and plan: Improving. Continue current medications. Qualifiers: Hypertension type: essential hypertension Qualified Code(s): I10 - Essential (primary) hypertension (8) Morbid obesity Current Visit: Yes Status: Chronic Qualifiers: Obesity type: unspecified obesity type Qualified Code(s): E66.01 - Morbid ( severe) obesity due to excess calories (9) Tobacco abuse Current Visit: Yes Status: Chronic (10) DVT prophylaxis Current Visit: Yes Status: Acute - Subjective Interval history: Complaints of cough. Also having pain in her back and her abdomen with coughing. No fever or chills or night sweats reported. No nausea or vomiting. - Constitutional Vitals: Temp Pulse Resp BP Pulse Ox 98.1 F 89 16 148/94 93 L 05/11/16 07:11 05/11/16 07:11 05/11/16 07:11 05/11/16 07:11 05/11/16 07:11 General appearance: Present: cooperative, mild distress, A&O X 3, morbidly obese , pleasant, no acute distress, answers questions appropriately - Respiratory Respiratory exam: Present: CTAB. Absent: accessory muscle use, rales, rhonchi, wheezes - Cardiovascular Cardiovascular exam: Present: RRR, +S1, +S2. Absent: diastolic murmur, gallop, rubs, systolic murmur - Extremities Exam Extremities exam: Present: warm, radial pulses palpable and symetrical. Absent : calf tenderness, cyanotic, pedal edema - Neurological Exam Neurological exam: Present: CN II-XII intact, oriented X3, no focal deficits. Absent: facial droop, speech deficit Internal Medicine: Result - Labs CBC & Chem 7: 05/10/16 03:10 05/10/16 03:10 - ABG Interpretation ABG results: PT/INR, D-dimer PT 13.7 Seconds (9.4-12.1) H 05/07/16 11:35 Consult Discharge Plan - Plan Referrals: Eulalia Hanson, DOCTOR NATUROPATHIC [Primary Care Provider] - Prescriptions: Cefazolin Sodium in 0.9 % NaCl [Cefazolin-0.9% NaCl 2 G/10 ml] 2 gm IV Q8H #30 syringe - Attending Attestation This document has been at least partially created by [email or web address] recognition technology by Dr. Redd. Errors in grammar, wording or other phrases may exist. If errors are found after the documentation is signed, they will be addressed individually in the addendum section of this document when appropriate.
[2016-05-11] MEDS: Budesonide/Formoterol 80/4.5 MDI IH SCH ×2 (11:00→22:28)
[2016-05-11] MEDS: GuaiFENesin Liq 200 MG/10 ML UDC PO PRN (12:12)
[2016-05-11] MEDS: *HR* HYDROcodone/Acet 7.5/325 mg TABLET PO PRN ×2 (15:18→22:15)
[2016-05-11] MEDS ORDERED: Lidocaine -MPF 1% 5 ML AMPUL INFILT ONE (16:01)
[2016-05-12] MEDS: Ipratropium/Albuterol Neb 3 ML IH SCH ×4 (03:42→22:17)
[2016-05-12 04:31] LABS: Hematocrit 37.3 % (35.3-44.9); Hemoglobin 12.3 g/dL (11.5-15.4); Mean Corpuscular Hemoglobin 28.9 pg (28.0-33.3); Mean Corpuscular Volume 87.6 fL (83.0-100.0); Mean Platelet Volume 8.7 fL (9.4-12.4); Platelet Count 325 K/mcL (140-400); Red Blood Count 4.26 M/mcL (3.82-4.97); Red Cell Distribution Width 14.7 % (11.5-14.5)
[2016-05-12 04:44] LABS: BUN/Creatinine Ratio 23 (6-26); Blood Urea Nitrogen 15 mg/dL (7-20); Carbon Dioxide 26 mEq/L (19-29); Chloride 100 mEq/L (98-109); Glucose 86 mg/dL (70-99); Osmolality,Calculated 282 (280-300); Potassium 4.1 mEq/L (3.5-4.5); Sodium 136 mEq/L (136-145); eGFR For African Americans > 60 (> 60); eGFR For Non-African Americans > 60 (> 60)
[2016-05-12 05:53] LABS: Band Neutrophils % 12.7 % (0-4); Lymphocytes # 3.6 K/mcL (0.6-4.6); Lymphocytes % 23.6 %; Monocytes # 0.5 K/mcL (0.0-1.3); Monocytes % 3.6 %
[2016-05-12 05:54] LABS: Platelet Estimate Normal (Normal)
[2016-05-12] MEDS: *HR* Heparin 5,000 UNIT/ML VIAL SQ SCH ×3 (06:05→23:38)
[2016-05-12] MEDS: ceFAZolin 2,000 MG in D5% in Water 100 ML IVPB SCH ×3 (08:06→23:38)
[2016-05-12] MEDS: Nicotine 14 MG PATCH.TD24 TD SCH (08:07)
[2016-05-12] MEDS: amLODIPine 5 MG TABLET PO SCH (08:07)
[2016-05-12] MEDS: Propranolol LA (24 HR) 60 MG CAP.SA.24H PO SCH (08:07)
[2016-05-12] MEDS: *HR* HYDROcodone/Acet 7.5/325 mg TABLET PO PRN ×3 (08:08→21:46)
[2016-05-12] MEDS: predniSONE 20 MG TABLET PO SCH (08:08)
[2016-05-12] MEDS: Loratadine 10 MG TABLET PO SCH (08:08)
[2016-05-12] MEDS: Budesonide/Formoterol 80/4.5 MDI IH SCH ×2 (11:18→22:16)
[2016-05-12] MEDS: (Pravastatin Sodium [Pravachol] 40 MG) PO SCH (11:59)
--- NOTE | 2016-05-12 13:15 | Discharge Summary ---
Date of Encounter: 05/12/16 Time of Encounter: 13:09 - Discharge Diagnosis (1) Staphylococcus aureus bacteremia Priority: Primary Status: Acute (2) Community acquired pneumonia Priority: Secondary Status: Acute (3) Acute exacerbation of chronic obstructive pulmonary disease (COPD) Priority: Secondary Status: Acute (4) Cough Priority: Secondary Status: Acute (5) Non-cardiac chest pain Priority: Secondary Status: Acute (6) Back pain Priority: Secondary Status: Chronic Qualifiers: Back pain location: low back pain Chronicity: chronic Back pain laterality: unspecified Sciatica presence: unspecified whether sciatica present Qualified Code(s): M54.5 - Low back pain; G89.29 - Other chronic pain (7) Hypertension Priority: Secondary Status: Chronic Qualifiers: Hypertension type: essential hypertension Qualified Code(s): I10 - Essential (primary) hypertension (8) Morbid obesity Priority: Secondary Status: Chronic Qualifiers: Obesity type: unspecified obesity type Qualified Code(s): E66.01 - Morbid ( severe) obesity due to excess calories (9) Tobacco abuse Priority: Secondary Status: Chronic (10) DVT prophylaxis Priority: Secondary Status: Acute (11) Sepsis Priority: Secondary Status: Acute Qualifiers: Sepsis type: methicillin susceptible Staphylococcus aureus Qualified Code(s ): A41.01 - Sepsis due to Methicillin susceptible Staphylococcus aureus - Discharge Medications Prescriptions: HYDROcodone/Acet 7.5/325 mg [[place] 7.5-325 mg] 1 tab PO Q6HR PRN #20 tablet PRN Reason: Pain Cefazolin Sodium in 0.9 % NaCl [Cefazolin 2 G/10 ml-0.9% NaCl] 2 gm IV Q8H #30 syringe PredniSONE 10 mg PO DAILY 6 Days Home Medications: Albuterol Sulfate [Albuterol Inhaler] 1 puff IH Q4HR #1 hfa.aer.ad 05/05/16 [Rx] Cyclobenzaprine [Flexeril] 10 mg PO BID PRN #10 tablet 05/05/16 [Rx] Amitriptyline [Elavil] 50 mg PO HS 05/07/16 [History] Duloxetine [Cymbalta] 60 mg PO DAILY 05/07/16 [History] Fluticasone/Salmeterol [Advair 250-50 Diskus] 2 puff IH BID 05/07/16 [History] Lisinopril/Hydrochlorothiazide [Zestoretic 10-12.5 mg Tablet] 1 tab PO DAILY 04/22 [History] Loratadine [Allergy Relief] 10 mg PO DAILY 05/07/16 [History] Meloxicam 15 mg PO DAILY 05/07/16 [History] Omeprazole [PriLOSEC] 20 mg PO DAILY 05/07/16 [History] Polyethylene Glycol 3350 [MiraLAX] 17 gm PO DAILY 05/07/16 [History] Pravastatin Sodium [Pravachol] 40 mg PO DAILY 05/07/16 [History] Propranolol LA (24 HR) [Inderal LA] 60 mg PO DAILY 05/07/16 [History] Cefazolin Sodium in 0.9 % NaCl [Cefazolin 2 G/10 ml-0.9% NaCl] 2 gm IV Q8H #30 syringe 05/10/16 [Rx] Amlodipine [Norvasc] 5 mg PO DAILY tablet 05/12/16 [Rx] HYDROcodone/Acet 7.5/325 mg [[place] 7.5-325 mg] 1 tab PO Q6HR PRN #20 tablet 09/20 [Rx] PredniSONE 10 mg PO DAILY 6 Days 05/12/16 [Rx] Allergies/Adverse Reactions: Allergies adhesive Allergy (Verified 05/07/16 13:44) Hives bacitracin [From Neosporin ([id number])] Allergy (Verified 05/07/16 13:44) Hives grass pollen-perennial rye, standar [grass poll-perennial rye,std] Allergy ( Verified 05/07/16 13:44) Hives Neomycin [From Neosporin ([id number])] Allergy (Verified 05/07/16 13:44) Hives polymyxin B [From Neosporin ([id number])] Allergy (Verified 05/07/16 13:44) Hives gabapentin [From Neurontin] Adverse Reaction (Verified 05/07/16 13:44) Hallucinating simvastatin [From Zocor] Adverse Reaction (Verified 05/07/16 13:44) Muscle Pain Date of admission: 05/07/16 17:38 Primary care physician: Eulalia Hanson CNP Consults: 05/10/16 10:13 Consult to Signal Tower Director [CONS] Routine Reason for SW Consult: DIscharge planning. terminal gauger IV antibiotics 05/11/16 10:23 Consult to Occupational Therapy [CONS] Routine Comment: Evaluate, develop and implement POC Consult to Physical Therapy [CONS] Routine Comment: Evaluate, develop and implement POC 05/11/16 16:01 Consult to Invasive Line Access Team [CONS] Routine Reason for Consult: Picc Line Insertion Line Type: EPIV PICC line indications: retirement Med/Antibiotic Discharging clinician: Danielle Redd Anticipated date of discharge: 05/13/16 - Patient Status Disposition: Transfer SNF Condition: Good Functional capacity at discharge: uses cane/walker Overall status at discharge: patient is progressing back to baseline - Discharge Instructions Instructions: Chronic Obstructive Pulmonary Disease (DC), Pneumonia (DC), Sepsis (DC) Follow Up With: Eulalia Hanson CNP [Primary Care Provider] - (in 1-2 weeks) - Diet and Activity Activity: as per physical therapy Diet: diabetic diet, low fat, low cholesterol, low salt diet Hospital course: Ms. Langford is a 50 year old female with history of COPD, obesity, fibromyalgia and hypertension was admitted here with community-acquired pneumonia and acute COPD exacerbation. She was treated with IV antibiotics, bronchodilator nebs, IV steroids. Her condition did improve with this treatment plan but her blood cultures returned positive for staph aureus that was methicillin sensitive. She continued to receive IV antibiotics with cefazolin since then. Her echocardiogram did not show any vegetations. Repeat blood cultures have been negative so far. Patient will to complete treatment course with intravenous antibiotics for her staph aureus bacteremia and pneumonia. At this time, placement is being arranged to skilled rehabilitation for IV antibiotics with manager social work. Patient will be discharged once she has that set up. - Time Spent with Patient Total time spent providing and/or coordinating discharge services: Greater than 30 minutes (40 min) - Constitutional Vitals: Temp Pulse Resp BP Pulse Ox 97.2 F L 98 20 135/87 97 05/12/16 11:50 05/12/16 11:50 05/12/16 11:50 05/12/16 11:50 05/12/16 11:50 General appearance: Present: cooperative, mild distress, A&O X 3, morbidly obese , pleasant, no acute distress, answers questions appropriately - Respiratory Respiratory exam: Present: CTAB. Absent: accessory muscle use, rales, rhonchi, wheezes - Cardiovascular Cardiovascular exam: Present: RRR, +S1, +S2. Absent: diastolic murmur, gallop, rubs, systolic murmur - GI/Abdominal GI/Abdominal exam: Present: normal bowel sounds, soft, no peritoneal signs. Absent: distended, tenderness - Extremities Exam Extremities exam: Present: warm, radial pulses palpable and symetrical. Absent : calf tenderness, cyanotic, pedal edema - Attending Attestation This document has been at least partially created by [employer] recognition technology by Dr. Redd. Errors in grammar, wording or other phrases may exist. If errors are found after the documentation is signed, they will be addressed individually in the addendum section of this document when appropriate.
--- NOTE | 2016-05-12 13:34 | Physician Discharge Referral ---
ExtendedCare Referral Info Provider in Charge after Transfer: PCP Institutional Level of Care: Skilled - Diagnosis (1) Staphylococcus aureus bacteremia Priority: Primary Status: Acute (2) Community acquired pneumonia Priority: Secondary Status: Acute (3) Acute exacerbation of chronic obstructive pulmonary disease (COPD) Priority: Secondary Status: Acute (4) Cough Priority: Secondary Status: Acute (5) Non-cardiac chest pain Priority: Secondary Status: Acute (6) Back pain Priority: Secondary Status: Chronic (7) Hypertension Priority: Secondary Status: Chronic (8) Morbid obesity Priority: Secondary Status: Chronic (9) Tobacco abuse Priority: Secondary Status: Chronic (10) DVT prophylaxis Priority: Secondary Status: Acute (11) Sepsis Priority: Secondary Status: Acute - Transfer Medications Prescriptions: HYDROcodone/Acet 7.5/325 mg [[place] 7.5-325 mg] 1 tab PO Q6HR PRN #20 tablet PRN Reason: Pain Cefazolin Sodium in 0.9 % NaCl [Cefazolin 2 G/10 ml-0.9% NaCl] 2 gm IV Q8H #30 syringe PredniSONE 10 mg PO DAILY 6 Days Home Medications: Albuterol Sulfate [Albuterol Inhaler] 1 puff IH Q4HR #1 hfa.aer.ad 05/05/16 [Rx] Cyclobenzaprine [Flexeril] 10 mg PO BID PRN #10 tablet 05/05/16 [Rx] Amitriptyline [Elavil] 50 mg PO HS 05/07/16 [History] Duloxetine [Cymbalta] 60 mg PO DAILY 05/07/16 [History] Fluticasone/Salmeterol [Advair 250-50 Diskus] 2 puff IH BID 05/07/16 [History] Lisinopril/Hydrochlorothiazide [Zestoretic 10-12.5 mg Tablet] 1 tab PO DAILY 04/22 [History] Loratadine [Allergy Relief] 10 mg PO DAILY 05/07/16 [History] Meloxicam 15 mg PO DAILY 05/07/16 [History] Omeprazole [PriLOSEC] 20 mg PO DAILY 05/07/16 [History] Polyethylene Glycol 3350 [MiraLAX] 17 gm PO DAILY 05/07/16 [History] Pravastatin Sodium [Pravachol] 40 mg PO DAILY 05/07/16 [History] Propranolol LA (24 HR) [Inderal LA] 60 mg PO DAILY 05/07/16 [History] Cefazolin Sodium in 0.9 % NaCl [Cefazolin 2 G/10 ml-0.9% NaCl] 2 gm IV Q8H #30 syringe 05/10/16 [Rx] Amlodipine [Norvasc] 5 mg PO DAILY tablet 05/12/16 [Rx] HYDROcodone/Acet 7.5/325 mg [[place] 7.5-325 mg] 1 tab PO Q6HR PRN #20 tablet 09/20 [Rx] PredniSONE 10 mg PO DAILY 6 Days 05/12/16 [Rx] Allergies/Adverse Reactions: Allergies adhesive Allergy (Verified 05/07/16 13:44) Hives bacitracin [From Neosporin ([id number])] Allergy (Verified 05/07/16 13:44) Hives grass pollen-perennial rye, standar [grass poll-perennial rye,std] Allergy ( Verified 05/07/16 13:44) Hives Neomycin [From Neosporin ([id number])] Allergy (Verified 05/07/16 13:44) Hives polymyxin B [From Neosporin ([id number])] Allergy (Verified 05/07/16 13:44) Hives gabapentin [From Neurontin] Adverse Reaction (Verified 05/07/16 13:44) Hallucinating simvastatin [From Zocor] Adverse Reaction (Verified 05/07/16 13:44) Muscle Pain - Respiratory Orders Smoking Cessation: Smoking cessation has been advised. For more information, call the [place] Tobacco Quit Line at 6-964-BQCS-NOW. - Ancillary Orders May consult with Dentist, Hay Sorter, Sports Therapist PRN - Advance Directives Code Status: Full Code - Mobility Orders Ambulate - Rehabiliation Orders Rehab Potential: Good Rehab Orders: Evaluation for Physical Therapy, Evaluation for Occupational Therapy - Diet Orders No Added Salt (LUKE), No Concentrated Sweets, Cardiac (and Diabetic) CERTIFICATION: I certify that the transfer of the above named patient to an Extended Care Facility is necessary for the continuing treatment of the diagnosis listed. The above information is true and accurate reflection of patient's current condition. Confidential - Redisclosure prohibited without a patient's written consent.
[2016-05-13] MEDS: Ipratropium/Albuterol Neb 3 ML IH SCH ×3 (04:48→15:32)
[2016-05-13] MEDS: *HR* Heparin 5,000 UNIT/ML VIAL SQ SCH ×2 (06:33→16:03)
[2016-05-13] MEDS: ceFAZolin 2,000 MG in D5% in Water 100 ML IVPB SCH (09:22)
[2016-05-13] MEDS: Loratadine 10 MG TABLET PO SCH (09:36)
[2016-05-13] MEDS: predniSONE 20 MG TABLET PO SCH (09:36)
[2016-05-13] MEDS: Propranolol LA (24 HR) 60 MG CAP.SA.24H PO SCH (09:37)
[2016-05-13] MEDS: amLODIPine 5 MG TABLET PO SCH (09:37)
[2016-05-13] MEDS: (Pravastatin Sodium [Pravachol] 40 MG) PO SCH (09:38)
[2016-05-13] MEDS: *HR* HYDROcodone/Acet 7.5/325 mg TABLET PO PRN ×2 (09:38→16:03)
[2016-05-13] MEDS: Nicotine 14 MG PATCH.TD24 TD SCH (10:22)
[2016-05-13] MEDS: Budesonide/Formoterol 80/4.5 MDI IH SCH (11:04)
[2016-05-13 11:19] VITALS: BP 111/69
--- NOTE | 2016-05-13 14:26 | Internal Med Progress Note ---
Date of Encounter: 05/13/16 Time of Encounter: 10:40 - Assessment and plan (1) Acute exacerbation of chronic obstructive pulmonary disease (COPD) Current Visit: Yes Status: Acute Assessment and plan: Improving. Continue nebs. Continue plan of care as documented in discharge summary (2) Community acquired pneumonia Current Visit: Yes Status: Acute Assessment and plan: Source is MSSA. On cefazolin (3) Sepsis Current Visit: Yes Status: Acute Qualifiers: Sepsis type: methicillin susceptible Staphylococcus aureus Qualified Code(s ): A41.01 - Sepsis due to Methicillin susceptible Staphylococcus aureus (4) Staphylococcus aureus bacteremia Current Visit: Yes Status: Acute Assessment and plan: Repeat blood cultures have been negative so far. Continue cefazolin. shore worker spoken to and states patient is clear for discharge (5) Hypertension Current Visit: Yes Status: Chronic Assessment and plan: Improving. Continue current medications. Qualifiers: Hypertension type: essential hypertension Qualified Code(s): I10 - Essential (primary) hypertension (6) Morbid obesity Current Visit: Yes Status: Chronic Qualifiers: Obesity type: unspecified obesity type Qualified Code(s): E66.01 - Morbid ( severe) obesity due to excess calories - Subjective Interval history: 50 Y/O F that is being managed for COPDE, Community acquired pneumonia , Sepsis with MSSA bacteremia patient is seen at bedside in no obvious distress She has no new symptoms and is being prepared to transfer to SNF for IV antibiotics She was amanged with IV steroids, antibiotics, bronchodilators Blood culture is positive for MSSA, patient is on cefazolin She is stable to be discharged to SNF for 10 days of IV antibiotics Plan of care discussed, verbalized understanding - Constitutional Vitals: Temp Pulse Resp BP Pulse Ox 97.6 F 99 16 111/69 96 05/13/16 11:18 05/13/16 11:18 05/13/16 11:18 05/13/16 11:18 05/13/16 11:18 General appearance: Present: cooperative, A&O X 3, morbidly obese, pleasant, no acute distress, answers questions appropriately - Head Head exam: Present: atraumatic, normocephalic - Eye Eye exam: Present: PERRL, conjuntiva pink, sclera anicteric Pupils: Present: PERRL - Neck Neck exam general surgery: Present: supple, trachea midline. Absent: lymphadenopathy - Respiratory Respiratory exam: Present: CTAB. Absent: accessory muscle use, rales, rhonchi, wheezes - Cardiovascular Cardiovascular exam: Present: RRR, +S1, +S2. Absent: diastolic murmur, gallop, rubs, systolic murmur - GI/Abdominal GI/Abdominal exam: Present: normal bowel sounds, soft, no peritoneal signs. Absent: distended, tenderness - Extremities Exam Extremities exam: Present: warm, radial pulses palpable and symetrical. Absent : calf tenderness, cyanotic, pedal edema - Neurological Exam Neurological exam: Present: CN II-XII intact, oriented X3, no focal deficits. Absent: pronater drift, facial droop, speech deficit - Skin Skin exam: Present: dry Internal Medicine: Result - Labs CBC & Chem 7: 05/12/16 04:10 05/12/16 04:10 - ABG Interpretation ABG results: PT/INR, D-dimer PT 13.7 Seconds (9.4-12.1) H 05/07/16 11:35 Consult Discharge Plan - Plan Instructions: Chronic Obstructive Pulmonary Disease (DC), Sepsis (DC), Pneumonia (DC) Referrals: Eulalia Hanson, [facility] [Primary Care Provider] - (in 1-2 weeks) Prescriptions: HYDROcodone/Acet 7.5/325 mg [[place] 7.5-325 mg] 1 tab PO Q6HR PRN #20 tablet PRN Reason: Pain Cefazolin Sodium in 0.9 % NaCl [Cefazolin 2 G/10 ml-0.9% NaCl] 2 gm IV Q8H #30 syringe PredniSONE 10 mg PO DAILY 6 Days
== END 2016-05-13 16:40 | DRG 871 ==
LOC: 3NENU 10:13 → EMEROO 10:13 → 3NENU 14:47 → SUATTDRO 17:38 → 3BNU 05-10 15:53
PROVIDERS: ADMIT Internal Medicine; ATTEND Internal Medicine